=== PATIENT | female | born 1935 | race Caucasian/White ===

== ENCOUNTER 2018-09-22 07:39 | Day surgery (SDC) | payer BC ==
[2018-09-16 10:51] VITALS: BMI 24.0
[2018-09-22] MEDS ORDERED: oxyCODONE HCL 10 MG SUSTAINED ACTING TABLET PO STA (08:20)
[2018-09-22] MEDS ORDERED: LIDOCAINE 1%/EPI 1:100000 (20 ML MULTI DOSE VIAL) ONE (09:39)
[2018-09-22] MEDS ORDERED: THROMBIN (RECOMBINANT) 5,000 UNIT VIAL TP ONE ×2 (09:39→10:58)
[2018-09-22] MEDS ORDERED: methylPREDNISolone ACET (DEPO) 40 MG/1 ML VIAL ONE ×2 (09:39→10:58)
[2018-09-22] MEDS ORDERED: BUPIVACAINE HCL/PF (5 MG/ML) 30 ML VIAL IJ ONE (09:54)
[2018-09-22] MEDS ORDERED: MIDAZOLAM HCL 2 MG/2 ML SINGLE DOSE VIAL ONE ×3 (09:54→11:53)
[2018-09-22] MEDS ORDERED: SUCCINYLCHOLINE CHLORIDE 200 MG/10 ML VIAL ONE (10:40)
[2018-09-22] MEDS ORDERED: DEXAMETHASONE SOD PHOSPHATE 4 MG/1 ML VIAL ONE (10:51)
[2018-09-22] MEDS ORDERED: ceFAZolin SODIUM 1 GM VIAL ONE (10:51)
[2018-09-22] MEDS ORDERED: KETOROLAC TROMETHAMINE 30 MG/1 ML VIAL ONE (10:51)
[2018-09-22] MEDS ORDERED: ONDANSETRON 4 MG/2 ML VIAL ONE (10:51)
[2018-09-22] MEDS ORDERED: DEXMEDETOMIDINE HCL 200 MCG/2 ML IVPB ONE (10:52)
[2018-09-22] MEDS ORDERED: GUM MASTIC/STORAX/MSAL/ALCOHOL 1 DRP DROPSBTL MC ONE (10:58)
[2018-09-22] MEDS ORDERED: ePHEDrine SULFATE 50 MG/1 ML AMPULE ONE (10:59)
--- NOTE | 2018-09-22 12:14 | HP ---
History & Physical Update - History History: No Change - Physical Physical: No Change - Assessment Assessment: No Change - Plan Plan: No Change
--- NOTE | 2018-09-22 12:15 | OP ---
Operative Note - Note: Operative Date: 09/22/18 Pre-Operative Diagnosis: L4-S1 stenosis with radiculopathy Operation: L4-S1 bilateral laminectomy Post-Operative Diagnosis: Same as Pre-op Surgeon: Bro Rosales Assistant Grocery: Jonn Lake Anesthesiologist/KILN OPERATOR HELPER: Rich Mayo Anesthesia: Spinal Estimated Blood Loss (mls): 20 Fluid Volume Replaced (mls): 400 Operative Report Dictated: Yes
--- NOTE | 2018-09-22 12:17 | SURG ---
Surgery Pack Operator Note Pack Operator: Jonn Lake PA-C Date of Service: 09/22/18 Diagnosis: L4-S1 stenosis with radiculopathy Procedure: L4-S1 bilateral laminectomy I was present for the entirety of the operative procedure. For further detail, please refer to operative report. Visit type - Case Type Case Type: Scheduled - New patient This patient is new to me today: Yes Date on this admission: 09/22/18
[2018-09-22] MEDS ORDERED: ONDANSETRON 4 MG/2 ML VIAL IVPUSH PRN (12:23)
[2018-09-22] MEDS ORDERED: oxyCODONE HCL 5 MG TABLET PO PRN ×2 (12:23)
[2018-09-22] MEDS ORDERED: PROMETHAZINE HCL 25 MG/1 ML VIAL IVPUSH PRN (12:23)
--- NOTE | 2018-09-22 12:53 | OP ---
DATE OF OPERATION: 09/22/2018 PREOPERATIVE DIAGNOSIS: Spinal stenosis, L4-5 and L5-S1. POSTOPERATIVE DIAGNOSIS: Spinal stenosis, L4-5 and L5-S1. PROCEDURE PERFORMED: Laminectomy, L4-5 and L5-S1. SURGEON: Bro Rosales MD WINDOWS SYSTEMS ADMINISTRATOR: SHERMAN Handy ESTIMATED BLOOD LOSS: 50 mL. INTRAVENOUS FLUIDS: Per Anesthesia. ANESTHESIA: Spinal/TLIP. COMPLICATIONS: There were none. DISPOSITION: Patient brought to the PACU in stable condition. INDICATION FOR SURGERY: Patient is an 83-year-old female who has been suffering from pain from her back down her legs. X-rays and MRI were completed which showed that she had spinal stenosis from L4 to S1. She had gone through an exhaustive course of treatment which included medications, physical therapy, as well as injections. Unfortunately, her pain continued to persist despite all this. At this point, risks, benefits, and alternatives are discussed, and the patient consented to surgery. DESCRIPTION OF PROCEDURE: Patient was brought to the operating room by the Anesthesia staff after appropriate patient identification was performed. Spinal anesthesia was given. TLIP block was also given. Patient was able to position herself prone onto the OR table and avoid all bony prominences at this time. Two needles were placed in her back to renae off the L4-S1 segments. X-ray was taken to confirm this was correct. Needle was removed, and 10 mL of lidocaine with epinephrine was injected into the back. At the time, her back was prepped and draped in a sterile manner. At this point, timeout was completed. An incision was made from the top of L4 down to the bottom of S1. Dissection was carried down to the fascia. The fascia was split open at this time and appropriate retractors were placed in. A spinal needle was placed onto the L4 lamina. An x-ray was taken to confirm this was correct. Needle was removed, and the L5-S1 interspace was cut as was the L4 interspace. The L5 spinous process was removed. The L5 lamina was removed. A complete decompression was performed in such that by the end of the procedure the L5-S1 nerve roots appeared to be well decompressed. All bleeding was well controlled at this time. Steroids were placed over the nerve root. FloSeal was placed over that. The fascia was closed with a number 1 Vicryl suture. Subcutaneous tissue was closed with 2-0 Vicryl sutures. Skin was closed with 3-0 Monocryl suture. Dermabond was applied. Steri-Strips were applied. Sterile dressing was applied. Patient was placed supine on the OR bed and brought to the PACU in stable condition. Jennifer RENDON/[id number]
[2018-09-22 13:41] VITALS: TEMP 97.4
[2018-09-22 16:37] VITALS: BP 107/66; PULSE 94
== END 2018-09-22 16:20 | disposition home or self-care (01) ==
LOC: FASU 07:39
PROVIDERS: ATTEND Orthopaedic Surgery Orthopaedic Surgery of the Spine
PROC: 01NB0ZZ Release Lumbar Nerve, Open Approach (ICD-10-PCS; principal; 2018-09-22 11:06)
DX: M48.061 Spinal stenosis, lumbar region without neurogenic claudication (principal); M48.07 Spinal stenosis, lumbosacral region
CPT/HCPCS: 94760